=== PATIENT | female | born 1980 | race Asian ===

== ENCOUNTER 2016-05-30 | Outpatient (CLI) | payer OTHER | END 2016-05-30 08:24 | disposition critical access hospital (66) | CPT/HCPCS: A0425; A0427 ==

== ENCOUNTER 2016-05-30 08:46 | Emergency (ER) | payer OTHER ==
[2016-05-30] MEDS ORDERED: SODIUM CHLORIDE 0.9% 1,000 ML IV ONE (09:38)
[2016-05-30] MEDS ORDERED: DEXAMETHASONE 10 MG/ML VIAL IVP STA (09:38)
[2016-05-30] MEDS ORDERED: MECLIZINE 12.5 MG TABLET PO STA (09:38)
[2016-05-30] MEDS ORDERED: MECLIZINE 12.5 MG TABLET PO ONE (09:44)
[2016-05-30] MEDS ORDERED: DEXAMETHASONE 10 MG/ML VIAL ONE (09:44)
[2016-05-30] MEDS ORDERED: CEPHALEXIN 250 MG CAPSULE PO STA (10:54)
[2016-05-30] MEDS ORDERED: CEPHALEXIN 250 MG CAPSULE PO ONE (11:04)
== END 2016-05-30 11:58 | disposition home or self-care (01) ==
DX: R42 Dizziness and giddiness (principal); N30.00 Acute cystitis without hematuria; B34.9 Viral infection, unspecified
CPT/HCPCS: 36415; 80053; 81001; 81025; 83690; 85025; 96374; 99283; A9270

== ENCOUNTER 2016-05-31 | Outpatient (CLI) | payer OTHER | END 2016-05-31 05:36 | disposition critical access hospital (66) | CPT/HCPCS: A0425; A0427 ==

== ENCOUNTER 2016-05-31 06:00 | Emergency (ER) | payer OTHER ==
[2016-05-31] MEDS ORDERED: ACETAMINOPHEN 1,000 MG/100 ML 100 ML IV STA (08:38)
[2016-05-31] MEDS ORDERED: ACETAMINOPHEN 1,000 MG/100 ML 100 ML IV ONE (08:49)
[2016-05-31] MEDS ORDERED: IOPAMIDOL-300 100 ML VIAL IVP ONE (09:12)
[2016-05-31] MEDS ORDERED: SODIUM CHLORIDE 0.9% 1,000 ML IV ONE (10:58)
== END 2016-05-31 13:17 | disposition home or self-care (01) ==
DX: R00.2 Palpitations (principal); R42 Dizziness and giddiness; R07.9 Chest pain, unspecified; D72.829 Elevated white blood cell count, unspecified; Z87.42 Personal history of other diseases of the female genital tract
CPT/HCPCS: 36415; 71020; 71275; 80053; 83690; 84443; 84484; 85025; 93005; 93010; 99284; J0131; Q9967